=== PATIENT | female | born 1960 | race Two or more races ===

== ENCOUNTER 2017-12-29 12:50 | Outpatient (CLI) | payer MEDICARE, OTHER | END 2017-12-29 23:59 | disposition home health service (06) | LOC: WOU 12:50 | PROVIDERS: ATTEND Podiatrist Foot & Ankle Surgery | DX: S81.811A Laceration without foreign body, right lower leg, initial encounter (principal); W22.03XA Walked into furniture, initial encounter; Y92.009 Unspecified place in unspecified non-institutional (private) residence as the place of occurrence of the external cause; G90.521 Complex regional pain syndrome I of right lower limb; L03.115 Cellulitis of right lower limb; Z79.891 Long term (current) use of opiate analgesic; R60.0 Localized edema | CPT/HCPCS: A6402; G0463 ==

== ENCOUNTER 2018-01-05 12:45 | Outpatient (CLI) | payer MEDICARE, MEDICAID | END 2018-01-05 23:59 | disposition home health service (06) | LOC: WOU 12:45 | PROVIDERS: ATTEND Podiatrist Foot & Ankle Surgery | DX: S81.811D Laceration without foreign body, right lower leg, subsequent encounter (principal); W22.8XXD Striking against or struck by other objects, subsequent encounter; G90.521 Complex regional pain syndrome I of right lower limb; L27.0 Generalized skin eruption due to drugs and medicaments taken internally; T37.0X5A Adverse effect of sulfonamides, initial encounter; Y92.009 Unspecified place in unspecified non-institutional (private) residence as the place of occurrence of the external cause; Z88.0 Allergy status to penicillin | CPT/HCPCS: A6402; G0463 ==

== ENCOUNTER 2018-01-12 12:00 | Outpatient (CLI) | payer MEDICARE, BC | END 2018-01-12 23:59 | disposition home health service (06) | LOC: WOU 12:00 | PROVIDERS: ATTEND Podiatrist Foot & Ankle Surgery | DX: S81.811D Laceration without foreign body, right lower leg, subsequent encounter (principal); G90.521 Complex regional pain syndrome I of right lower limb; W22.8XXD Striking against or struck by other objects, subsequent encounter; Y92.009 Unspecified place in unspecified non-institutional (private) residence as the place of occurrence of the external cause; Z88.0 Allergy status to penicillin; Z87.891 Personal history of nicotine dependence | CPT/HCPCS: A6402; G0463 ==

== ENCOUNTER 2018-01-22 11:50 | Outpatient (CLI) | payer MEDICARE, MEDICAID | END 2018-01-22 23:59 | disposition home health service (06) | LOC: WOU 11:50 | PROVIDERS: ATTEND Podiatrist Foot & Ankle Surgery | DX: S81.811D Laceration without foreign body, right lower leg, subsequent encounter (principal); G90.521 Complex regional pain syndrome I of right lower limb; W22.8XXD Striking against or struck by other objects, subsequent encounter; Y92.009 Unspecified place in unspecified non-institutional (private) residence as the place of occurrence of the external cause; Z88.0 Allergy status to penicillin; Z88.2 Allergy status to sulfonamides | CPT/HCPCS: A6402; G0463 ==

== ENCOUNTER 2018-02-05 12:01 | Outpatient (CLI) | payer MEDICARE, BC ==
[2018-02-05] MEDS ORDERED: CLINDAMYCIN 900 MG/6 ML VIAL IM ONE (13:30)
== END 2018-02-05 23:59 | disposition home health service (06) ==
LOC: WOU 12:01
PROVIDERS: ATTEND Podiatrist Foot & Ankle Surgery
DX: S81.811D Laceration without foreign body, right lower leg, subsequent encounter (principal); G90.521 Complex regional pain syndrome I of right lower limb; L03.115 Cellulitis of right lower limb; B96.89 Other specified bacterial agents as the cause of diseases classified elsewhere; W22.8XXD Striking against or struck by other objects, subsequent encounter; Y92.009 Unspecified place in unspecified non-institutional (private) residence as the place of occurrence of the external cause
CPT/HCPCS: 87070-TC; 87186-TC; 96372; A6402; G0463; J3490

== ENCOUNTER 2018-02-12 11:26 | Outpatient (CLI) | payer MEDICARE, OTHER | END 2018-02-12 23:59 | disposition home or self-care (01) | LOC: WOU 11:26 | PROVIDERS: ATTEND Podiatrist Foot & Ankle Surgery | DX: S81.811D Laceration without foreign body, right lower leg, subsequent encounter (principal); L03.115 Cellulitis of right lower limb; W22.8XXD Striking against or struck by other objects, subsequent encounter; G90.521 Complex regional pain syndrome I of right lower limb; G89.29 Other chronic pain; Z88.0 Allergy status to penicillin | CPT/HCPCS: A6402; G0463 ==

== ENCOUNTER 2018-03-05 12:23 | Outpatient (CLI) | payer MEDICARE, OTHER | END 2018-03-05 23:59 | disposition home health service (06) | LOC: WOU 12:23 | PROVIDERS: ATTEND Podiatrist Foot & Ankle Surgery | DX: S81.811D Laceration without foreign body, right lower leg, subsequent encounter (principal); W22.03XD Walked into furniture, subsequent encounter; G90.521 Complex regional pain syndrome I of right lower limb; Z87.891 Personal history of nicotine dependence; Z88.0 Allergy status to penicillin; L03.115 Cellulitis of right lower limb | CPT/HCPCS: A6253; A6402; G0463 ==